=== PATIENT | male | born 1995 | race Caucasian/White ===

== ENCOUNTER 2018-11-01 13:53 | Day surgery (SDC) | payer BC ==
[~2018-11-01] VITALS: Ht 180.3 cm; Wt 90.7 kg
[~2018-11-01 13:53] MED LIST changes: -ENAL20TA PO; -HYDR-3816 PO; -IOHEXOL 350 MG/ML 100 ML (OMNIPAQUE 350) VIAL IV ONE; -NS 100 ML (IVPB) BAG IV ONE; -RECEIVED CONTRAST (Hold Metformin) IV SCH; -fentaNYL INJECTION 100 MCG/2 ML AMP ONE
[2018-11-01 14:09] VITALS: BP 147/72
[2018-11-01] MEDS ORDERED: ceFAZolin 2 GM IV Premixed 50 ML ONE (14:16)
[2018-11-01] MEDS ORDERED: ENAL20TA PO (14:16)
--- NOTE | 2018-11-01 14:26 | History & Physical-Surgical ---
HPO-Surgical History of Present Illness Chief Complaint: Mr. Marcos Sainz is a 23 year old male who presented to his primary care physician this morning with complaints of right lower abdominal pain. He reports that this has been occuring intermittently for the past month. He reports that each episode the pain has become gradually worse. He reports that two days ago he did develop severe sharp right lower quandrant pain as well as sweats and chills. This did improve until today when it became severe again. He reports that he would even have nights over the course of the past month in which the pain would awaken him. He denied any nausea or vomiting and no diarrhea or constipation. He was sent for lab work as well as a CT scan in which the lab work was unremarkable howevere the CT scan showed an acute appendicitis. Diagnosis/Surgical Indication: ACUTE APPENDICITIS Procedure: Laparoscopic appendectomy Date of Surgery: Nov 01, 2018 Weight (Pounds): 200 Weight (Ounces): 0.0 Height (Feet): 5 Height (Inches): 11.00 Allergies and Home Medications Allergies Coded Allergies: No Known Drug Allergies (Unverified , 05/20/14) Home Medications Enalapril Maleate 20 Mg Tablet, 20 MG PO DAILY, (Reported) Patient Home Medication List Home Medication List Reviewed: Yes Past Qtujsah-Amarqr-Fplxrg Hx Patient Social History Alcohol Use: Regular Use Alcohol Beverage of Choice: Beer Recreational Drug Use: No Smoking Status: Never a Smoker 2nd Hand Smoke Exposure: No Recent Foreign Travel: No Contact w/other who traveled: No Recent Hopitalizations: No Recent Infectious Disease Expo: No Immunizations Up To Date Tetanus Booster (TDap): Less than 5yrs Date of Influenza Vaccine: Jun 01, 2018 Surgeries No Respiratory No Cardiovascular No Neurological No Reproductive System Hx Reproductive Disorders: No Gastrointestinal Yes (NERVOUS STOMACH) Musculoskeletal No Endocrine History of Endocrine Disorders: No Cancer No Psychosocial History of Psychiatric Problem: No Integumentary History of Skin or Integumenta: No Blood Transfusions History of Blood Disorders: No Family Medical History Significant Family History: No Pertinent Family Hx Exam Vital Signs Vital Signs 11/01/18 14:09 Temp 98.2 Pulse 55 Resp 16 B/P (MAP) 147/72 (97) Pulse Ox 97 O2 Delivery Room Air Capillary Refill : General Appearance: Alert, Oriented X3, Cooperative, No Acute Distress HEENT: Atraumatic, PERRLA Respiratory: Clear to Auscultation, Normal Air Movement Cardiovascular: Regular Rate, No Murmurs Abdominal: Soft, Other (Positive for rebound tenderness at mcBurney's point) Extremities: No Clubbing, No Cyanosis, No Edema, Normal Pulses, No Tenderness/ Swelling Skin: No Rashes, No Breakdown, No Significant Lesion Neuro: Normal Gait, Normal Speech, Strength at 5/5 X4 Ext Psych/Mental Status: Mental Status NL, Mood NL Assessment/Plan Assessment and Plan A 23 year old male with acute appendicitis. At this time it was discussed with the patient about proceeding with a laparoscopic appendectomy. The risks, benefits, and home care instructions were explained to the patient. The patient verbalized understanding of instructions and agreed to proceed as planned. Admission Diagnosis Acute appendicitis Admission Status: Observation Copy Copies To 1: BELIA DILLON MD Copies To 2: FRITZ PIERRE MD, DUSTIN L APRN Nov 01, 2018 14:26
--- NOTE | 2018-11-01 14:35 | Progress Note-Pre Operative ---
Pre-Operative Progress Note H&P Reviewed The H&P was reviewed, patient examined and no changes noted. Date Seen by Provider: Nov 01, 2018 Time Seen by Provider: 14:20 Date H&P Reviewed: Nov 01, 2018 Time H&P Reviewed: 14:35 Pre-Operative Diagnosis: Acute Appendicitis EBONI CARROLL APRN Nov 01, 2018 14:35
[2018-11-01] MEDS ORDERED: HYDR-3816 PO (14:38)
--- NOTE | 2018-11-01 14:39 | Discharge Inst-Surgical ---
D/C Lap Instructions-KIDO New, Converted, or Re-Newed RX: RX on Chart Follow Up Appt in 2 weeks Activity as tolerated No driving for 24 hours No driving while on pain medications Incentive Spirometry use every 2 hours while awake Regular Diet Symptoms to Report: Fever over 101 degree F, Nausea/Vomiting Infection Signs and Symptoms to report: Increased redness, Foul odor of wound, Increased drainage Bathing instructions: May shower Operative Area Clean/Dry; Keep incision clean/dry If any problems/questions: Contact your physician or go to Emergency Room EBONI CARROLL APRN Nov 01, 2018 14:39
[2018-11-01] MEDS ORDERED: HYDROcodone/APAP 5 MG/325 MG (LORTAB) TAB PO ONE (14:45)
[2018-11-01] MEDS ORDERED: ONDANSETRON 4 MG/2 ML (SDV) Z0FRAN IVP PRN ×2 (14:45→19:30)
[2018-11-01] MEDS ORDERED: ACETAMINOPHEN 325 MG TABLET PO PRN (14:45)
[2018-11-01] MEDS ORDERED: morphine INJ 10 MG/ML 1ML (SYR OR VIAL) IVP PRN (14:45)
[2018-11-01] MEDS ORDERED: BUP/EPI 0.5% 1:200,000 (SENSORCAINE) 30 ML VIAL ONE (17:41)
[2018-11-01] MEDS ORDERED: MIDAZOLAM 2 MG/2 ML (VERSED) VIAL ONE (17:49)
[2018-11-01] MEDS ORDERED: proPOfol 200 MG/20 ML (DIPRIVAN) VIAL IV ONE (17:49)
[2018-11-01] MEDS ORDERED: ONDANSETRON 4 MG/2 ML (SDV) Z0FRAN ONE (17:49)
[2018-11-01] MEDS ORDERED: SEVOFLURANE (ULTANE) 15 ML INHAL SOLN ONE ×4 (17:49→18:39)
[2018-11-01] MEDS ORDERED: LIDOCAINE PF 2% 5 ML (XYLOCAINE) VIAL ONE (17:49)
[2018-11-01] MEDS ORDERED: DEXAMETHASONE 10 MG/ML (DECADRON) 1 ML VIAL ONE (17:49)
[2018-11-01] MEDS ORDERED: LACTATED RINGERS 1,000 ML IV PRN (18:40)
[2018-11-01] MEDS ORDERED: GLYCOPYRROLATE 0.2 MG/ML (ROBINUL) 2 ML VIAL ONE (18:43)
[2018-11-01] MEDS ORDERED: NEOSTIGMINE 1 MG/ML 5 ML SYRINGE ONE (18:52)
--- NOTE | 2018-11-01 19:04 | Progress Note-Post Operative ---
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
[2018-11-01] MEDS ORDERED: morphine INJ 10 MG/ML 1ML (SYR OR VIAL) ONE (19:05)
[2018-11-01] MEDS ORDERED: MEPERIDINE (DEMEROL) INJ 50 MG/ML ONE (19:06)
[2018-11-01] MEDS ORDERED: MEPERIDINE (DEMEROL) INJ 50 MG/ML IVP ONE (19:30)
[2018-11-01] MEDS ORDERED: morphine INJ 10 MG/ML 1ML (SYR OR VIAL) IVP ONE (19:30)
[2018-11-01 20:20] VITALS: BP 169/80
--- NOTE | 2018-11-01 20:20 | NUR ---
EDMUNDO LEONARD admitted to room 423-1, with an admitting diagnosis of POST OP LAP APPY, on 11/01/18 from [facility] via CART, accompanied by STAFF. EDMUNDO LEONARD introduced to surroundings, call light, bed controls, phone, TV, temperature control, lights, meal times, smoking policy, visitor policy, side rail policy, bathrooms and showers. Patient Rights given to patient in the handbook.EDMUNDO LEONARD verbalizes understanding that [facility] is not responsible for the loss or damage to any personal effects or valuables that are kept in the patients posession during their hospitalization.
[2018-11-01] MEDS: HYDROcodone/APAP 7.5 MG/325 MG (LORTAB, LORCET PLUS) TABLET PO PRN (22:05)
[2018-11-01 23:02] VITALS: BP 155/74
[2018-11-02] MEDS: HYDROcodone/APAP 7.5 MG/325 MG (LORTAB, LORCET PLUS) TABLET PO PRN (00:43)
--- NOTE | 2018-11-02 01:54 | OPERATIVE REPORT ---
DATE OF SERVICE: 11/01/2018 ATTENDING PRIMARY CARE PHYSICIAN: Dr. Echols. PREOPERATIVE DIAGNOSIS: Acute appendicitis. POSTOPERATIVE DIAGNOSIS: Acute appendicitis. PROCEDURE: Laparoscopic appendectomy. SURGEON: Belia Dillon MD COMMUNICATIONS ANALYST: Danilo Crews APRN. ANESTHESIA: General endotracheal. ESTIMATED BLOOD LOSS: Minimal. FINDINGS: Inflamed appendix with no perforation. What was visualized is the small bowel, omentum, colon appeared normal. DISPOSITION: The patient tolerated the procedure well. INDICATIONS: The patient is a 23-year-old male who presented to the Emergency Department with pain in the right lower abdominal quadrant. He reports that he has had two other episodes in the past month; however, were less severe and did resolve on their own. He reports at this time around, the pain was much more significant and again located in the right lower abdominal quadrant and localized. He did not report any nausea, no vomiting. Due to this pain and the potential for appendicitis, he kept himself n.p.o. He was seen in the Emergency Department where a CT scan was performed, which did show inflammation of the appendix consistent with appendicitis. DESCRIPTION OF PROCEDURE: The patient was brought to the operating room, laid supine on the table. After adequate IV pain and sedative medications and general endotracheal intubation, the abdomen was prepped and draped in standard surgical fashion. A 0.5% Marcaine with epinephrine was then used to anesthetize the overlying skin in the left upper abdominal quadrant and a transverse skin incision was made using a 15 blade. An 0 silk suture was applied to the medial aspect of the incision for traction and a Veress needle was inserted with low opening pressure of 0 mmHg and the abdomen was insufflated to 15 mmHg pressure. The Veress needle was removed and a 5 mm Xcel trocar was placed followed by a 5 mm 45-degree angle laparoscope visualizing the peritoneal cavity. A 4-quadrant abdominal exploration was performed. Retrocecal appendix, which was inflamed; however, there were no signs of perforation. What was visualized as the colon, omentum and small bowel appeared normal as did the liver, gallbladder, and stomach. Under direct visualization, we then proceeded to place a supraumbilical 10 mm port after the skin and peritoneal lining were anesthetized using 0.5% Marcaine with epinephrine and a transverse skin incision was made using a 15 blade. In a similar manner, a suprapubic 5 mm port was placed. The patient was then placed in Trendelenburg position as well as plane right side up, left side down. The peritoneal reflection was then opened using cautery on the hook instrument. The appendix was then identified and then retracted towards the anterior abdominal wall. The mesoappendix and the appendix at the cecal base were then taken using a 2.5 mm thickness stapler and a reload with visualization of good hemostasis. The appendix was removed through the 10 mm port site using an EndoCatch bag. The 10 mm port site fascia and peritoneum were then closed under direct visualization using Anupam-Bryson device and 0 Vicryl suture. The abdomen was desufflated and remaining ports were removed. All skin incisions were closed using 4-0 Monocryl running subcuticular sutures. Wounds were then cleaned and covered with Dermabond. The patient tolerated the procedure well. We will start IV normal pain medication as well as a clear liquid diet. Once he is tolerating clears, has good pain control with oral pain medications, ambulating well, we will discharge him home. He will be instructed to do no heavy lifting or exertion for the next two weeks. Job ID: [id number] DocumentID: [id number] Dictated Date: 11/01/2018 19:13:32 Peripatologist Date: 11/02/2018 01:53:16 Dictated By: BELIA DILLON MD [facility]
[2018-11-02 03:22] VITALS: BP 143/67
--- NOTE | 2018-11-02 07:05 | NUR ---
EDMUNDO LEONARD demonstrates understanding of discharge instructions and accurately returns instructions upon questioning. Copy of Post-Discharge Instructions given to PT. EDMUNDO LEONARD is able to manage continuing needs after discharge. Patients belongings returned to PT. Patient discharged from [facility] on 11/02/18 at 0705 . EDMUNDO LEONARD left floor via AMB, accompanied by FAMILY.
--- NOTE | 2018-11-02 07:08 | Anesthesia-General Post-Op ---
General Patient Condition Mental Status/LOC: Same as Preop Cardiovascular: Satisfactory Nausea/Vomiting: Absent Respiratory: Satisfactory Pain: Controlled Complications: Absent Post Op Complications Complications None Follow Up Care/Instructions Patient Instructions None needed. Anesthesia/Patient Condition Patient Condition Patient is doing well, no complaints, stable vital signs, no apparent adverse anesthesia problems. No complications reported per nursing. D/C home per [facility] Criteria: Yes CHERRY POLO CRNA Nov 02, 2018 07:08
== END 2018-11-02 07:05 | disposition home or self-care (01) ==
LOC: SDC 13:53 → 4TH 20:49 → SDC 11-02 07:05
PROVIDERS: ATTEND Surgery
DX: K35.80 Unspecified acute appendicitis (principal); I10 Essential (primary) hypertension; Z79.899 Other long term (current) drug therapy
CPT/HCPCS: 87081; 94664

== ENCOUNTER → 2018-11-01 | Outpatient (CLI) | payer BC, OTHER ==
[~2018-11-01] MED LIST: ENAL20TA PO; HYDR-3816 PO; IOHEXOL 350 MG/ML 100 ML (OMNIPAQUE 350) VIAL IV ONE; NS 100 ML (IVPB) BAG IV ONE; RECEIVED CONTRAST (Hold Metformin) IV SCH; Z-PACK; [UNRECOGNIZED DRUG - OTHER]; fentaNYL INJECTION 100 MCG/2 ML AMP ONE
[2018-11-01 11:37] LABS: HEMOGLOBIN 16.8 G/DL (13.3-17.7); MEAN PLATELET VOLUME 9.3 FL (7.4-10.4); RED CELL DISTRIBUTION WIDTH 12.7 % (10.0-14.5); WHITE BLOOD COUNT 9.2 10^3/uL (4.3-11.0)
[2018-11-01 11:39] LABS: BILIRUBIN,URINE NEGATIVE (NEGATIVE); CLARITY,URINE CLEAR; COLOR,URINE YELLOW; GLUCOSE, URINE (UA) NEGATIVE (NEGATIVE); KETONES,URINE NEGATIVE (NEGATIVE); LEUKOCYTE ESTERASE ,URINE NEGATIVE (NEGATIVE); NITRITE,URINE NEGATIVE (NEGATIVE); PH,URINE 7 (5-9); PROTEIN,URINE NEGATIVE (NEGATIVE); UROBILINOGEN,URINE NORMAL (NORMAL)
[2018-11-01 11:56] LABS: ALANINE AMINOTRANSFERASE 37 U/L (0-55); ALBUMIN 4.8 GM/DL (3.2-4.5); ALKALINE PHOSPHATASE 65 U/L (40-136); BILIRUBIN,TOTAL 1.2 MG/DL (0.1-1.0); BUN/CREATININE RATIO 12; CALCIUM 10.1 MG/DL (8.5-10.1); CARBON DIOXIDE 27 MMOL/L (21-32); CHLORIDE 104 MMOL/L (98-107); CREATININE SERUM 1.36 MG/DL (0.60-1.30); GFR ESTIMATED > 60; GLUCOSE 91 MG/DL (70-105); POTASSIUM 4.7 MMOL/L (3.6-5.0); SODIUM 139 MMOL/L (135-145); TOTAL PROTEIN 7.5 GM/DL (6.4-8.2)
[2018-11-01 12:04] LABS: BACTERIA,URINE NEGATIVE /HPF; WBC,URINE 0-2 /HPF
--- NOTE | 2018-11-01 12:42 | Diagnostic Imaging Report ---
PROCEDURE: CT abdomen and pelvis with contrast. TECHNIQUE: Multiple contiguous axial images were obtained through the abdomen and pelvis after administration of intravenous contrast. INDICATION: Right lower quadrant pain. COMPARISON: No prior studies are available for comparison. FINDINGS: The lung bases are clear. No discrete liver mass is seen. Gallbladder is unremarkable. No biliary ductal dilatation is seen. The pancreas and spleen are unremarkable. No adrenal mass is seen. The kidneys are unremarkable. The aorta is nonaneurysmal. The bowel loops are normal caliber. The appendix is diffusely enlarged. There is periappendiceal inflammation present. Findings are consistent with acute appendicitis. No abscess is identified. There is no evidence of bowel obstruction. Bladder is unremarkable. IMPRESSION: Findings consistent with acute appendicitis. No abscess formation or bowel obstruction is identified. Results were discussed with DARA Alfaro, prior to this dictation. Dictated by: Dictated on workstation # [id number]
== END ==
LOC: RAD 11:24
PROVIDERS: ATTEND Physician Assistant
DX: R10.31 Right lower quadrant pain (principal)
CPT/HCPCS: 36415; 74177; 80053; 81000; 85027; 86141

== ENCOUNTER → 2022-11-24 | Outpatient (CLI) | payer BC ==
[~2022-11-24] MED LIST changes: +ENAL20TA16 PO; +HYDR-34 PO
[2022-11-24 15:20] LABS: BASOPHILS % (AUTO) 1 % (0-10); EOSINOPHILS # (AUTO) 0.1 10^3/uL (0.0-0.3); EOSINOPHILS % (AUTO) 2 % (0-10); HEMATOCRIT 48 % (40-54); HEMOGLOBIN 17.2 g/dL (13.3-17.7); LYMPHOCYTES # (AUTO) 1.8 10^3/uL (1.0-4.0); LYMPHOCYTES % (AUTO) 29 % (12-44); MEAN CORPUSCULAR HEMOGLOBIN 31 pg (25-34); MEAN CORPUSCULAR HGB CONC 36 g/dL (32-36); MEAN CORPUSCULAR VOLUME 84 fL (80-99); MEAN PLATELET VOLUME 9.1 fL (9.0-12.2); MONOCYTES # (AUTO) 0.7 10^3/uL (0.0-1.0); MONOCYTES % (AUTO) 10 % (0-12); NEUTROPHILS # (AUTO) 3.7 10^3/uL (1.8-7.8); NEUTROPHILS % (AUTO) 58 % (42-75); PLATELET COUNT 323 10^3/uL (130-400); WHITE BLOOD COUNT 6.4 10^3/uL (4.3-11.0)
[2022-11-24 15:30] LABS: CHLORIDE 105 MMOL/L (98-107); SODIUM 141 MMOL/L (135-145)
[2022-11-24 15:31] LABS: ALBUMIN 4.7 GM/DL (3.2-4.5)
[2022-11-24 15:32] LABS: TRIGLYCERIDES 100 MG/DL (<150); VLDL CHOLESTEROL 20 MG/DL (5-40)
[2022-11-24 15:33] LABS: GLUCOSE 89 MG/DL (70-105); TOTAL PROTEIN 7.5 GM/DL (6.4-8.2)
[2022-11-24 15:34] LABS: CARBON DIOXIDE 28 MMOL/L (21-32)
[2022-11-24 15:35] LABS: BILIRUBIN,TOTAL 1.2 MG/DL (0.1-1.0)
[2022-11-24 15:37] LABS: ALKALINE PHOSPHATASE 58 U/L (40-136); CHOLESTEROL 179 MG/DL (< 200); CREATININE SERUM 1.26 MG/DL (0.60-1.30); GFR ESTIMATED 81
[2022-11-24 15:38] LABS: BUN/CREATININE RATIO 11
[2022-11-24 15:39] LABS: HDL CHOLESTEROL 35 MG/DL (40-60)
[2022-11-24 15:40] LABS: ALANINE AMINOTRANSFERASE 40 U/L (0-55)
== END ==
LOC: LAB 14:54
PROVIDERS: ATTEND Family Medicine
DX: Z13.1 Encounter for screening for diabetes mellitus (principal)
CPT/HCPCS: 36415; 80053; 80061; 83036; 85025